=== PATIENT | male | born 1960 | race Caucasian/White ===

== ENCOUNTER 2021-06-19 14:05 | Emergency (ER) | payer OTHER ==
[2021-06-19 15:17] LABS: BILIRUBIN NEGATIVE (NEGATIVE); BLOOD 3+ Ery/uL (NEGATIVE); CLARITY CLEAR (CLEAR); COLOR YELLOW (YELLOW); GLUCOSE (U) NORMAL (NORMAL); LEUKOCYTES NEGATIVE Leu/uL (NEGATIVE); NITRITE NEGATIVE (NEGATIVE); PROTEIN 2+ mg/dL (NEGATIVE); SPECIFIC GRAVITY >=1.030 (1.001-1.030); UROBILINOGEN 0.2 mg/dL (0.2-1.0); pH 5.5 (5.0-9.0)
[2021-06-19 15:17] LABS: BASOPHIL 0.3 % (0-2); EOSINOPHIL 0.4 % (0-5); HCT 37.8 % (42.0-52.0); LYMPHOCYTE 8.5 % (15-48); MCH 28.6 pg (25.0-31.0); MCHC 31.7 g/dL (32.0-36.0); MONOCYTE 3.1 % (0-12); MPV 10.6 fL (6.0-9.5); NEUTROPHIL 87.2 % (41-80); NRBC 0; PLT 174 K/uL (150-400); RDW 14.6 % (11.5-14.0); WBC 9.5 K/uL (4.0-10.5)
[2021-06-19 15:25] LABS: BACTERIA TRACE; URIC ACID CRYSTALS LARGE
[2021-06-19 15:35] LABS: ALBUMIN 3.5 g/dL (3.4-5.0); BILIRUBIN - TOTAL 0.4 mg/dL (0.2-1.0); BUN/CREAT RATIO (CALC) 22.3 RATIO; CREATININE 2.56 mg/dL (0.67-1.17); GLOBULIN (CALCULATION) 4.2 g/dL; POTASSIUM 4.9 mmol/L (3.5-5.1); TOTAL PROTEIN 7.7 g/dL (6.4-8.2)
[2021-06-19] MEDS ORDERED: FLOMAX0.4 MG PO (17:23)
[2021-06-19] MEDS ORDERED: ONDANSETRON ODT4 MG PO (17:23)
[2021-06-19] MEDS ORDERED: PERCOCET 5-3251 EACH PO (17:23)
[2021-06-19 17:28] LABS: CORONAVIRUS 2019 SARS-COV-2 NEGATIVE (NEGATIVE); INFLUENZA A NAA NEGATIVE (NEGATIVE)
== END 2021-06-19 19:24 | disposition home or self-care (01) ==
LOC: FER 14:05
PROVIDERS: Internal Medicine
DX: N13.2 Hydronephrosis with renal and ureteral calculous obstruction (principal); E11.22 Type 2 diabetes mellitus with diabetic chronic kidney disease; I12.9 Hypertensive chronic kidney disease with stage 1 through stage 4 chronic kidney disease, or unspecified chronic kidney disease; N18.4 Chronic kidney disease, stage 4 (severe); I48.91 Unspecified atrial fibrillation; Z20.822 Contact with and (suspected) exposure to COVID-19
CPT/HCPCS: 36415; 80053; 81001; 82150; 83690; 85025; J1170; J2405; U0002